=== PATIENT | male | born 1950 | race Caucasian/White ===

== ENCOUNTER 2019-07-25 10:10 | Inpatient (IN) ==
[2019-07-25] MEDS ORDERED: TYLENOL 325 MG TAB PO PRN (10:59)
[2019-07-25] MEDS ORDERED: NS 500 ML IV 500 ML IV ONE (10:59)
[2019-07-25] MEDS ORDERED: BENADRYL INJ 50 MG VIAL IVP PRN (10:59)
[2019-07-25] MEDS ORDERED: PEPCID 20 MG IV PREMIX* 20 MG/50 ML BAG IV SCH (11:00)
[2019-07-25] MEDS ORDERED: NS 1000 ML 1,000 ML ONE (11:09)
[2019-07-25] MEDS: NS 1000 ML 1,000 ML IV SCH (11:26)
[2019-07-25 11:32] LABS: BASOPHILS # (AUTO) 0.1 X10^3/uL (0.0-0.1); EOSINOPHILS # (AUTO) 0.2 x10^3/uL (0.0-0.2); EOSINOPHILS % (AUTO) 2.8 % (0.9-2.9); HEMATOCRIT 21.7 % (42.0-54.0); LYMPHOCYTES # (AUTO) 1.7 X10^3/uL (1.3-2.9); LYMPHOCYTES % (AUTO) 26.2 % (21.0-51.0); MEAN CORPUSCULAR HEMOGLOBIN 21.1 pg (27.0-34.0); MEAN CORPUSCULAR HGB CONC 31.1 g/dL (33.0-35.0); MEAN CORPUSCULAR VOLUME 67.7 fL (80.0-100.0); MEAN PLATELET VOLUME 6.7 fL (7.4-11.0); MONOCYTES # (AUTO) 0.7 x10^3/uL (0.3-0.8); MONOCYTES % (AUTO) 11.1 % (0.0-13.0); NEUTROPHILS # (AUTO) 3.7 x10^3/uL (2.2-4.8); NEUTROPHILS % (AUTO) 58.9 % (42.0-75.0); PLATELET COUNT 339 X10^3/uL (150.0-450.0); RED CELL DISTRIBUTION WIDTH 19.8 % (11.6-16.5); WHITE BLOOD COUNT 6.3 X10^3/uL (3.6-10.0)
[2019-07-25 11:40] VITALS: BMI 17.4
[2019-07-25 11:40] LABS: HEMOGLOBIN 6.8 g/dL (13.5-18.0)
[2019-07-25] MEDS: PROTONIX INJ 40 MG VIAL IVP SCH ×2 (11:40→21:07)
[2019-07-25 11:44] LABS: ALANINE AMINOTRANSFERASE 41 Units/L (12-78); ALBUMIN 3.3 g/dL (3.4-5.0); ALKALINE PHOSPHATASE 88 Units/L (46-116); ASPARTATE AMINO TRANSFERASE 62 Units/L (15-37); BLOOD UREA NITROGEN 11 mg/dL (7-18); CALCIUM 8.6 mg/dL (8.5-10.1); CARBON DIOXIDE 29.2 mmol/L (21-32); CHLORIDE 98 mmol/L (98-107); COR CA(FOR HYPOALB) 9.2 mg/dL (8.5-10.1); CREATININE 1.37 mg/dL (0.70-1.30); SODIUM 131 mmol/L (136-145); eGFR NON BLACK RACES 55 (>60)
[2019-07-25 11:53] LABS: HYPOCHROMASIA 2+; MICROCYTOSIS 1+; PLATELET MORPHOLOGY COMMENT NORMAL (NORMAL)
[2019-07-25] MEDS ORDERED: PATIENT'S HOME MEDICATION PO SCH (14:21)
[2019-07-25] MEDS ORDERED: PERCOCET TAB 5/325 MG PO PRN (16:41)
[2019-07-25] MEDS: PATIENT'S HOME MEDICATION PO PRN ×2 (17:30→23:43)
[2019-07-25] MEDS ORDERED: SINGULAIR TAB 10 MG PO SCH (21:00)
[2019-07-25] MEDS: FLONASE NASAL SPRAY ENOSTRIL SCH (21:07)
[2019-07-25] MEDS: ATIVAN TAB 0.5 MG PO SCH ×2 (21:08→23:20)
[2019-07-25 21:24] LABS: HEMATOCRIT 30.3 % (42.0-54.0)
[2019-07-25 21:26] LABS: HEMOGLOBIN 9.8 g/dL (13.5-18.0)
[2019-07-25] MEDS: TEMOVATE SOLN TOP SCH (21:27)
[2019-07-26] MEDS: NS 1000 ML 1,000 ML IV SCH (05:02)
[2019-07-26 06:19] LABS: ALANINE AMINOTRANSFERASE 34 Units/L (12-78); ALBUMIN 3.2 g/dL (3.4-5.0); ALKALINE PHOSPHATASE 73 Units/L (46-116); ASPARTATE AMINO TRANSFERASE 44 Units/L (15-37); BLOOD UREA NITROGEN 14 mg/dL (7-18); CALCIUM 8.4 mg/dL (8.5-10.1); CARBON DIOXIDE 26.4 mmol/L (21-32); CHLORIDE 100 mmol/L (98-107); CREATININE 1.35 mg/dL (0.70-1.30); SODIUM 137 mmol/L (136-145); TOTAL PROTEIN 8.6 g/dL (6.4-8.2); eGFR NON BLACK RACES 56 (>60)
[2019-07-26 06:37] LABS: BASOPHILS # (AUTO) 0.1 X10^3/uL (0.0-0.1); BASOPHILS % (AUTO) 1.1 % (0.2-1.0); EOSINOPHILS # (AUTO) 0.2 x10^3/uL (0.0-0.2); EOSINOPHILS % (AUTO) 3.2 % (0.9-2.9); HEMATOCRIT 29.4 % (42.0-54.0); HEMOGLOBIN 9.7 g/dL (13.5-18.0); LYMPHOCYTES # (AUTO) 1.4 X10^3/uL (1.3-2.9); LYMPHOCYTES % (AUTO) 22.4 % (21.0-51.0); MEAN CORPUSCULAR HEMOGLOBIN 24.2 pg (27.0-34.0); MEAN CORPUSCULAR HGB CONC 33.1 g/dL (33.0-35.0); MEAN CORPUSCULAR VOLUME 73.1 fL (80.0-100.0); MEAN PLATELET VOLUME 6.6 fL (7.4-11.0); MONOCYTES # (AUTO) 0.8 x10^3/uL (0.3-0.8); MONOCYTES % (AUTO) 12.8 % (0.0-13.0); NEUTROPHILS # (AUTO) 3.7 x10^3/uL (2.2-4.8); NEUTROPHILS % (AUTO) 60.5 % (42.0-75.0); PLATELET COUNT 298 X10^3/uL (150.0-450.0); RED BLOOD COUNT 4.02 X10^6/uL (4.7-6.0); RED CELL DISTRIBUTION WIDTH 23.1 % (11.6-16.5); WHITE BLOOD COUNT 6.2 X10^3/uL (3.6-10.0)
[2019-07-26 07:02] LABS: ANISOCYTOSIS 2+; HYPOCHROMASIA SLIGHT; PLATELET MORPHOLOGY COMMENT NORMAL (NORMAL)
[2019-07-26 07:03] LABS: MICROCYTOSIS SLIGHT
[2019-07-26] MEDS ORDERED: POTASSIUM CHL 40 MEQ/NS 0.45% 500 ML IV PRN (08:04)
[2019-07-26] MEDS ORDERED: MICRO K EXTEN CAP 10 MEQ PO PRN (08:04)
[2019-07-26] MEDS ORDERED: POTASSIUM CHL 60 MEQ/NS 0.45% 500 ML IV PRN (08:04)
[2019-07-26] MEDS ORDERED: POTASSIUM CHLORIDE LIQ 20 MEQ UDC PO PRN (08:04)
[2019-07-26] MEDS ORDERED: KLOR-CON PO PRN (08:04)
[2019-07-26] MEDS ORDERED: K-RIDER 10 MEQ/NS 100 ML 10 MEQ/100 ML BAG IV PRN (08:04)
[2019-07-26] MEDS ORDERED: K-DUR TAB 20 MEQ PO PRN (08:04)
[2019-07-26] MEDS: FLONASE NASAL SPRAY ENOSTRIL SCH (08:15)
[2019-07-26] MEDS: PATIENT'S HOME MEDICATION PO PRN (08:15)
[2019-07-26] MEDS: PROTONIX INJ 40 MG VIAL IVP SCH (08:15)
[2019-07-26] MEDS ORDERED: LEXAPRO PO SCH (09:00)
[2019-07-26] MEDS ORDERED: CYMBALTA PO SCH (09:00)
[2019-07-26] MEDS ORDERED: PEPCID 20 MG IV PREMIX* 20 MG/50 ML BAG IV SCH (09:00)
[2019-07-26] MEDS: ATIVAN TAB 0.5 MG PO SCH (09:03)
[2019-07-26] MEDS: TEMOVATE SOLN TOP SCH (09:06)
[2019-07-26 10:23] VITALS: BP 154/83
[2019-07-26] MEDS ORDERED: TEMOVATE CREAM EXT SCH (21:00)
--- NOTE | 2019-08-06 10:56 | DR.CARTERS ---
Short Stay Summary - Admission Date Date of Admission: 07/25/19 - Discharge Date Discharge Date: 07/26/19 - Admission Diagnoses (1) Anemia Status: Acute - Hospital Course Hospital Course: IS A 69 YEAR OLD PATIENT OF OURS WHO PRESENTED TO THE HOSPITAL A DIRECT ADMISSION DUE TO ANEMIA. OUTPATIENT LABS REVEALED A HEMOGLOBIN OF 6.3. HE WAS ADMITTED FOR TRANSFUSION OF TWO UNITS PACKED RED BLOOD CELLS. ON ARRIVAL, VITALS ERE 99.5-311-87-100%-158/79. LABS WERE OBTAINED. ABNORMAL LAB VALUES INCLUDE THE FOLLOWING: RBC 3.20, HGB 6.8, HCT 21.7, SODIUM 131, CREATININE 1.37, AST 62, TOTAL PROTEIN 9.0, ALBUMIN 3.3. WE TYPE AND SCREENED PATIENT. WHEN BLOOD BECAME AVAILABE, WE TRANSFUSED TWO UNITS. OTHERWISE, WE PLANNED TO FOLLOW UP WITH AM LABS AND CONTINUE TO MONITOR. ON THE MORNING FOLLOWING ADMISSION, PATIENT IS ALERT AND ORIENTED, LYING IN BED ON MORNING ROUNDS. HE DENIES WEAKNESS OR OTHER SYMPTOMS. HE REPORTS FEELING WELL AND IS REQUESTING DISCHARGE TO HOME. HIS VITALS THIS MORNING ARE: 99.2-91-20-99%-173/93. LABS WERE OBTAINED. ABNORMAL LAB VALUES INCLUDE THE FOLLOWING: RBC 4.02, HGB 9.7, HCT 29.4, CREATININE 1.35, CALCIUM 8.4, AST 44, TOTAL PROTEIN 8.6, ALBUMIN 3.4. WE PLANNED FOR DISCHARGE. INSTRUCTION FOR MEDICATIONS AND FOLLOW UP WERE DISCUSSED WITH PATIENT AND FAMILY. THEY VERBALIZED UNDERSTANDING OF ALL ORDERS. HE WAS GIVEN NEW PRESCRIPTIONS FOR PEPCID 40MG PO BID AND PROTONIX 40MG PO BID. HE WAS INSTRUCTED TO FOLLOW UP IN THE OFFICE IN ONE WEEK. HE WAS THEN DISCHARGED HOME WITH FAMILY IN STABLE, IMPROVED CONDITION. - Discharge Medications Discharge Medications: Home Medication List clobetasol 0.05 % TOPICAL BID 07/25/19 [History] duloxetine 30 mg PO DAILY 07/25/19 [History] escitalopram oxalate 10 mg PO DAILY 07/25/19 [History] fluticasone propionate 50 mcg INTRANASAL BID 07/25/19 [History] lorazepam 0.5 mg PO BID 07/25/19 [History] montelukast 10 mg PO DAILY 07/25/19 [History] oxycodone-acetaminophen 7.5 tab PO QID 07/25/19 [History] famotidine [Pepcid] 40 mg PO BID #60 tab 07/26/19 [Rx] pantoprazole [Protonix] 40 mg PO BID #60 tab 07/26/19 [Rx] Prescriptions: famotidine [Pepcid] Brad Srinivasan pantoprazole [Protonix] Brad Srinivasan - Discharge Plan Disposition: HOME, SELF-CARE Condition: Stable Prescriptions: famotidine [Pepcid] 40 mg PO BID #60 tab pantoprazole [Protonix] 40 mg PO BID #60 tab - Follow up/Referrals Follow up/Referrals: Brad Srinivasan [Primary Care Provider] - 1 WEEK - Instructions Instructions: Anemia Forms: Excuse From Work or School, Patient Portal
== END 2019-07-26 11:28 | disposition home or self-care (01) | DRG 812 ==
LOC: ICU 10:20
PROVIDERS: ADMIT Internal Medicine; ATTEND Internal Medicine
DX: D64.9 Anemia, unspecified; Z79.899 Other long term (current) drug therapy
CPT/HCPCS: 36415; 36430; 80053; 83735; 85014; 85018; 85025; 85610; 85730; 86850; 86900; 86901; 86922; A4216; A4222; C9113; J1200; J3490; J7030; J7040; P9016; S0028

== ENCOUNTER 2020-03-11 17:25 | Inpatient (IN) ==
[2020-03-11 18:23] LABS: ALANINE AMINOTRANSFERASE 34 Units/L (12-78); ALBUMIN 3.2 g/dL (3.4-5.0); ALKALINE PHOSPHATASE 76 Units/L (46-116); ASPARTATE AMINO TRANSFERASE 57 Units/L (15-37); BLOOD UREA NITROGEN 16 mg/dL (7-18); CALCIUM 8.8 mg/dL (8.5-10.1); CARBON DIOXIDE 23.2 mmol/L (21-32); CHLORIDE 90 mmol/L (98-107); COR CA(FOR HYPOALB) 9.4 mg/dL (8.5-10.1); CREATININE 1.96 mg/dL (0.70-1.30); eGFR NON BLACK RACES 36 (>60)
[2020-03-11 18:25] LABS: BASOPHILS # (AUTO) 0.1 X10^3/uL (0.0-0.1); BASOPHILS % (AUTO) 0.9 % (0.2-1.0); EOSINOPHILS # (AUTO) 0.3 x10^3/uL (0.0-0.2); EOSINOPHILS % (AUTO) 3.7 % (0.9-2.9); HEMATOCRIT 22.5 % (42.0-54.0); HEMOGLOBIN 7.2 g/dL (13.5-18.0); LYMPHOCYTES # (AUTO) 1.8 X10^3/uL (1.3-2.9); LYMPHOCYTES % (AUTO) 23.5 % (21.0-51.0); MEAN CORPUSCULAR HGB CONC 31.8 g/dL (33.0-35.0); MEAN CORPUSCULAR VOLUME 72.3 fL (80.0-100.0); MEAN PLATELET VOLUME 6.6 fL (7.4-11.0); MONOCYTES # (AUTO) 0.7 x10^3/uL (0.3-0.8); MONOCYTES % (AUTO) 9.9 % (0.0-13.0); NEUTROPHILS # (AUTO) 4.7 x10^3/uL (2.2-4.8); PLATELET COUNT 420 X10^3/uL (150.0-450.0); RED BLOOD COUNT 3.11 X10^6/uL (4.7-6.0); RED CELL DISTRIBUTION WIDTH 16.6 % (11.6-16.5); WHITE BLOOD COUNT 7.5 X10^3/uL (3.6-10.0)
[2020-03-11 18:30] LABS: SODIUM 123 mmol/L (136-145)
[2020-03-11] MEDS: NS 1000 ML 1,000 ML IV SCH (18:46)
[2020-03-11 19:09] LABS: HYPOCHROMASIA 2+; PLATELET MORPHOLOGY COMMENT NORMAL (NORMAL)
[2020-03-11] MEDS ORDERED: NS 250 ML IV 250 ML IV ONE (21:17)
[2020-03-12 02:35] LABS: HEMATOCRIT 30.5 % (42.0-54.0)
[2020-03-12 02:36] LABS: HEMOGLOBIN 9.9 g/dL (13.5-18.0)
[2020-03-12] MEDS: NS 1000 ML 1,000 ML IV SCH (05:20)
[2020-03-12 06:43] LABS: BASOPHILS # (AUTO) 0.1 X10^3/uL (0.0-0.1); BASOPHILS % (AUTO) 0.8 % (0.2-1.0); EOSINOPHILS # (AUTO) 0.3 x10^3/uL (0.0-0.2); EOSINOPHILS % (AUTO) 3.2 % (0.9-2.9); HEMATOCRIT 30.8 % (42.0-54.0); HEMOGLOBIN 9.9 g/dL (13.5-18.0); LYMPHOCYTES # (AUTO) 1.5 X10^3/uL (1.3-2.9); LYMPHOCYTES % (AUTO) 18.3 % (21.0-51.0); MEAN CORPUSCULAR HEMOGLOBIN 24.9 pg (27.0-34.0); MEAN CORPUSCULAR HGB CONC 32.2 g/dL (33.0-35.0); MEAN CORPUSCULAR VOLUME 77.3 fL (80.0-100.0); MEAN PLATELET VOLUME 6.5 fL (7.4-11.0); MONOCYTES # (AUTO) 0.8 x10^3/uL (0.3-0.8); MONOCYTES % (AUTO) 9.8 % (0.0-13.0); NEUTROPHILS # (AUTO) 5.7 x10^3/uL (2.2-4.8); NEUTROPHILS % (AUTO) 67.9 % (42.0-75.0); PLATELET COUNT 356 X10^3/uL (150.0-450.0); RED BLOOD COUNT 3.98 X10^6/uL (4.7-6.0); RED CELL DISTRIBUTION WIDTH 18.5 % (11.6-16.5); WHITE BLOOD COUNT 8.3 X10^3/uL (3.6-10.0)
[2020-03-12 07:05] LABS: PLATELET MORPHOLOGY COMMENT NORMAL (NORMAL)
[2020-03-12 07:07] LABS: ALANINE AMINOTRANSFERASE 30 Units/L (12-78); ALKALINE PHOSPHATASE 69 Units/L (46-116); ASPARTATE AMINO TRANSFERASE 49 Units/L (15-37); BLOOD UREA NITROGEN 19 mg/dL (7-18); CALCIUM 8.7 mg/dL (8.5-10.1); CARBON DIOXIDE 23.7 mmol/L (21-32); CHLORIDE 95 mmol/L (98-107); COR CA(FOR HYPOALB) 9.5 mg/dL (8.5-10.1); CREATININE 1.91 mg/dL (0.70-1.30); SODIUM 128 mmol/L (136-145); TOTAL PROTEIN 9.5 g/dL (6.4-8.2); eGFR NON BLACK RACES 37 (>60)
[2020-03-12 08:09] VITALS: BMI 15.7
[2020-03-12 08:37] VITALS: BP 149/71
--- NOTE | 2020-03-12 09:54 | DR.SSS ---
SHORT STAY SUMMARY Admission Date Date of Admission: 03/11/20 Discharge Date Discharge Date: 03/12/20 Admission Diagnoses Admission Diagnoses: Symptomatic Anemia Hyponatremia SHANON Discharge Diagnoses Discharge Diagnoses: Symptomatic anemia Hyponatremia SHANON Chief Complaint Chief Complaint: Weakness History of Present Illness History of Present Illness: Pt is a 69 yo m pmhx Anemia admitted for symptomatic anemia, hyponatremia, and SHANON. He reports that for the past few weeks he has been fatigue, dizzy, lightheaded. He started to lose his appetite and was too weak to get out of bed. He went to see his pcp and had labs, was told if his symptoms continue to go to ED. He arrived in ED and had outpt labs drawn which showed Hgb 7.2, Na 123, and Cr 1.96. He was directly admitted and transfused 2u prbc and started on IVF NS. Nephrotoxic drugs were held. Pt responded well to treatments and on morning of discharge his labs: Wbc 8.3, Hgb 9.9, Plt 356, Na 128, K 3.8, Cr 1.91, Gluc 100. His Hgb and Na improved, Cr trending down. Pt's appetite had improved, he no longer felt fatigued, and felt he could continue his care at home. Pt was discharged home in stable condition. He is instructed to follow up with pcp in 1 week. Past Medical History Past Medical History: Arthritis Past Surgical History Surgical History: Abdominal Surgery, Appendectomy, Ortho Surgery, Tonsillectomy and Other Allergies Allergies Allergy/AdvReac Type Severity Reaction Status Date / Time ibuprofen AdvReac Verified 03/11/20 21:00 Medications Home Medications: ibuprofen Adverse Reaction (Verified 03/11/20 21:00) CONTINUE taking the following medications ciprofloxacin HCl 500 mg PO BID 03/12/20 [History] Family History Family Medical History: Diabetes Mellitus and Cancer Social History Does patient currently use any type of tobacco product: No Have you used tobacco products in the last 12 months: No Alcohol Use: DAILY Drug Use: None Review of Systems Constitutional: Weakness; denies Fever and Chills Eyes: No Symptoms Reported ENT: No Symptoms Reported Respiratory: No Symptoms Reported Cardiovascular: No Symptoms Reported Gastrointestinal: No Symptoms Reported Genitourinary: No Symptoms Reported Musculoskeletal: No Symptoms Reported Skin: No Symptoms Reported Neurological: No Symptoms Reported Physical Exam Vital Signs: Last Vital Signs Temp 98.0 F 03/12/20 08:00 Pulse 88 03/12/20 08:00 Resp 18 03/12/20 08:00 BP 149/71 03/12/20 08:00 Pulse Ox 100 03/12/20 08:00 Oriented: Normal Eyes: Normal Ear: Normal Nose: Normal Respiratory: Clear Throughout Cardiovascular: Normal : Normal Auscultation: Bowel Sounds: Normal Palpation: Normal Tenderness: Normal Skin: Normal Musculoskeletal: Normal Psychiatric: Normal Mood Description: Calm Speech Pattern: Clear Labs Labs: Laboratory Last Values WBC 8.3 X10^3/uL (3.6-10.0) 03/12/20 06:24 RBC 3.98 X10^6/uL (4.7-6.0) L 03/12/20 06:24 Hgb 9.9 g/dL (13.5-18.0) L 03/12/20 06:24 Hct 30.8 % (42.0-54.0) L 03/12/20 06:24 MCV 77.3 fL (80.0-100.0) L 03/12/20 06:24 MCH 24.9 pg (27.0-34.0) L 03/12/20 06:24 MCHC 32.2 g/dL (33.0-35.0) L 03/12/20 06:24 RDW 18.5 % (11.6-16.5) H 03/12/20 06:24 Plt Count 356 X10^3/uL (150.0-450.0) 03/12/20 06:24 Plt Count Comment Adequate (ADEQUATE) 03/12/20 06:24 MPV 6.5 fL (7.4-11.0) L 03/12/20 06:24 Neut % (Auto) 67.9 % (42.0-75.0) 03/12/20 06:24 Lymph % (Auto) 18.3 % (21.0-51.0) L 03/12/20 06:24 [place] % (Auto) 9.8 % (0.0-13.0) 03/12/20 06:24 Eos % (Auto) 3.2 % (0.9-2.9) H 03/12/20 06:24 Baso % (Auto) 0.8 % (0.2-1.0) 03/12/20 06:24 Neut # (Auto) 5.7 x10^3/uL (2.2-4.8) H 03/12/20 06:24 Lymph # (Auto) 1.5 X10^3/uL (1.3-2.9) 03/12/20 06:24 [place] # (Auto) 0.8 x10^3/uL (0.3-0.8) 03/12/20 06:24 Eos # (Auto) 0.3 x10^3/uL (0.0-0.2) H 03/12/20 06:24 Baso # (Auto) 0.1 X10^3/uL (0.0-0.1) 03/12/20 06:24 Absolute Nucleated RBC 0.1 /100WBC 03/12/20 06:24 Plt Morphology Comment Normal (NORMAL) 03/12/20 06:24 RBC Morphology Normal (NORMAL) 03/12/20 06:24 Hypochromasia 2+ A 03/11/20 18:00 Sodium 128 mmol/L (136-145) L 03/12/20 06:24 Corrected Sodium TNP 03/12/20 06:24 Potassium 3.8 mmol/L (3.5-5.1) 03/12/20 06:24 Chloride 95 mmol/L (98-107) L 03/12/20 06:24 Carbon Dioxide 23.7 mmol/L (21-32) 03/12/20 06:24 BUN 19 mg/dL (7-18) H 03/12/20 06:24 Creatinine 1.91 mg/dL (0.70-1.30) H 03/12/20 06:24 Est GFR (MDRD) Af Amer 45 (>60) L 03/12/20 06:24 Est GFR (MDRD) Non-Af 37 (>60) L 03/12/20 06:24 Glucose 100 mg/dL (65-99) H 03/12/20 06:24 Calcium 8.7 mg/dL (8.5-10.1) 03/12/20 06:24 Corrected Calcium 9.5 mg/dL (8.5-10.1) 03/12/20 06:24 Total Bilirubin 1.10 mg/dL (0.2-1.0) H 03/12/20 06:24 AST 49 Units/L (15-37) H 03/12/20 06:24 ALT 30 Units/L (12-78) 03/12/20 06:24 Alkaline Phosphatase 69 Units/L (46-116) 03/12/20 06:24 Total Protein 9.5 g/dL (6.4-8.2) H 03/12/20 06:24 Albumin 3.0 g/dL (3.4-5.0) L 03/12/20 06:24 Globulin 6.5 g/dL (2.5-4.5) H 03/12/20 06:24 Albumin/Globulin Ratio 0.5 Ratio (1.1-2.1) L 03/12/20 06:24 Blood Type O POSITIVE 03/11/20 18:00 Antibody Screen Negative 03/11/20 18:00 Crossmatch See Detail 03/11/20 18:00 Assessment/Plan (1) Symptomatic anemia: (2) Hyponatremia: (3) SHANON (acute kidney injury): Hospital Course Hospital Course: Pt arrived in ED and had outpt labs drawn which showed Hgb 7.2, Na 123, and Cr 1.96. He was directly admitted and transfused 2u prbc and started on IVF NS. Nephrotoxic drugs were held. Pt responded well to treatments and on morning of discharge his labs: Wbc 8.3, Hgb 9.9, Plt 356, Na 128, K 3.8, Cr 1.91, Gluc 100. His Hgb and Na improved, Cr trending down. Pt's appetite had improved, he no longer felt fatigued, and felt he could continue his care at home. Pt was discharged home in stable condition. He is instructed to follow up with pcp in 1 week. Discharge Medications Discharge Medications: Home Medication List ciprofloxacin HCl 500 mg PO BID 03/12/20 [History] Prescriptions: Discharge Disposition Discharge Disposition: Home
== END 2020-03-12 13:30 | disposition home or self-care (01) | DRG 812 ==
LOC: LAB 17:25 → MED/SURG 18:48
PROVIDERS: ADMIT Family Medicine; ATTEND Family Medicine
DX: N17.8 Other acute kidney failure; D64.89 Other specified anemias; E87.1 Hypo-osmolality and hyponatremia; R42 Dizziness and giddiness